=== PATIENT | female | born 1990 | race Caucasian/White ===

== ENCOUNTER 2022-04-01 01:01 | Inpatient (IN) ==
[2022-04-01] MEDS ORDERED: LIDOCAINE 1% LOCAL 20 ML VIAL INFIL PRN (01:51)
[2022-04-01] MEDS ORDERED: PENICILLIN G POTASSIUM 6 MU in DEXTROSE 5% 250 ML IV STA (01:51)
[2022-04-01] MEDS ORDERED: OXYTOCIN 30 UNITS/500 ML BAG IV PRN ×2 (01:51→08:39)
--- NOTE | 2022-04-01 01:56 | History & Physical Report ---
Date of Service April 01, 2022 Assessment & Plan (1) Group B streptococcal infection during : Plan: 31 yo G1 at 39 wga presents in labor VSS Fetus cat 1 Labor - expectant management, plan reviewed GBS+, pcn epidural prn History of Present Illness Chief Complaint: Contractions Primary Care Provider: NO PCP 31 yo G1 at 39 wga presents w/ ctx increasing in frequency and intensity. had gush of fluid and maybe trickle after but not since initial trickle. Some bloody show but no bleeding, +FM PNI: GBS+ Past rn referral Hx: G1 regular cycles denies hx STIs denies hx abnl pap Allergies Allergy/AdvReac Type Severity Reaction Status Date / Time No Known Allergies Allergy Verified 04/01/22 01:29 Home Medications Medication Instructions Recorded Confirmed Type prenat.vits,dotty,fxz-numn-jlbmw 1 tab PO DAILY 09/08/21 04/01/22 History Patient History Medical History Heart murmur History of chicken pox Surgical History S/P dilation of urethra Family History Father Diabetes Sister Thyroid disease Denies family history of Ovarian cancer Breast cancer Colorectal cancer Social History Smoking Status: Never smoker Hx Alcohol Use: No Hx Substance Use: No Preferred Language: Armenian Communication Ability: Effective 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 Beliefs That Will Affect Care: None marital status: Current Living Situation: Spouse Current Living Situation Comment: House with , sister and brother in law current occupational status: employed 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 Other Information That Helps Us Care for You: No Feels Safe at Home: Yes Safety Concerns: Feels Safe At This Time Assistive Devices: None Physical Exam Genitourinary: OB Exam Abdomen: + vertex and + estimated weight (7-8) Manual OB Exam: + cervical dilation (3-4), + cervical effacement 70% and + station -2; no amniotic fluid (neg pooling, ferning) OB Exam Monitor Tracing: + external FHT monitor used, + external uterine monitor used (q3) and + category I (130/mod/+accel/-decel) Results & Data ([facility]) Vital Signs (Past 12 Hours) Vital Signs Temp Pulse Resp BP O2 Del Method 04/01/22 01:30 98.1 F 20 Room Air 04/01/22 01:21 70 127/82 Laboratory Results OB Labs: Blood Type O Negative 09/08/21 Antibody Screen NEGATIVE 01/15/22 Hemoglobin 12.4 g/dl (12.0-16.0) 01/15/22 Hematocrit 35.7 % (34.1-44.9) 01/15/22 Mean Corpuscular Volume 94.3 fL (80-100) 09/08/21 Platelet Count 318 K/uL (130-400) 09/08/21 Rubella IgG Antibody Immune (Immune) 09/08/21 Rapid Plasma Reagin Nonreactive (Nonreactive) 09/08/21 Hepatitis B Surface Antigen. NON-REACTIVE (NON-REACTIVE) 09/08/21 Hepatitis C Antibody (EIA) NON-REACTIVE (NON-REACTIVE) 09/08/21 HIV (1&2) Ag and Ab Confirmation NON-REACTIVE (NON-REACTIVE) 09/08/21 Glucose 1 Hour 50 gm Load 99 mg/dl (70-130) 01/15/22 OB Optional Labs: Chlamydia trachomatis RNA NOT DETECTED (NOT DETECTED) 09/08/21 Neisseria gonorrhoeae RNA NOT DETECTED (NOT DETECTED) 09/08/21 Labs Reviewed: cf/sma-negative--mln GBS+ Coding Level of Care Code None Diagnoses Group B streptococcal infection during O98.819; B95.1
[2022-04-01] MEDS ORDERED: BUPIVACAINE 0.25% 30 ML VIAL ONE (02:10)
[2022-04-01] MEDS ORDERED: fentaNYL citrate 100 MCG/2 ML VIAL ONE (02:10)
[2022-04-01] MEDS ORDERED: ePHEDrine sulfate 50 MG/ML AMP ONE (02:10)
[2022-04-01] MEDS ORDERED: SODIUM CHLORIDE 0.9% INJ 10 ML VIAL ONE (02:10)
[2022-04-01] MEDS ORDERED: LIDOCAINE 2%/EPINEPHRINE 1:200,000 20 ML SDV ONE (02:10)
[2022-04-01] MEDS ORDERED: fentaNYL 2MCG/ML ROPIVACAINE 1.25MG/ML 100 ML BAG EPI ONE (02:11)
[2022-04-01] MEDS: LACTATED RINGER'S 1,000 ML IV PRN ×2 (02:17→03:21)
[2022-04-01 02:37] LABS: Hematocrit (blood only) 36.9 % (34.1-44.9); Hemoglobin 13.5 g/dl (12.0-16.0); Mean Corpuscular Hemoglobin 33.7 pg (25.0-34.0); Mean Corpuscular Hgb Conc 36.6 g/dL (32.0-36.0); Mean Platelet Volume 11.5 fL (9.4-12.3); Platelet Count 301 K/uL (130-400); RDW Coefficient of Variation 11.9 % (11.5-14.5); RDW Standard Deviation 39.8 fL (36.4-46.3); Red Blood Count 4.01 M/uL (3.93-5.22); White Blood Count 13.69 K/ul (4.8-10.8)
[2022-04-01] MEDS ORDERED: diphenhydrAMINE 50 MG/ML VIAL IV PRN (02:51)
[2022-04-01] MEDS ORDERED: NALOXONE HCL 1 MG in SODIUM CHLORIDE 0.9% 1000ML 1,000 ML IV PRN (02:51)
[2022-04-01] MEDS ORDERED: ePHEDrine sulfate 50 MG/ML AMP IV PRN (02:51)
[2022-04-01] MEDS ORDERED: fentaNYL 2MCG/ML ROPIVACAINE 1.25MG/ML 100 ML BAG EPI PRN (02:51)
[2022-04-01] MEDS ORDERED: NALOXONE HCL 0.4 MG/1 ML VIAL/CARP IV PRN (02:51)
[2022-04-01] MEDS ORDERED: ONDANSETRON INJ 2 MG/ML 2 ML VIAL IV PRN (02:51)
[2022-04-01] MEDS ORDERED: NALBUPHINE HCL INJ 10 MG/ML AMP IV PRN (02:51)
--- NOTE | 2022-04-01 02:53 | Anesthesiology Consultation ---
Date of Service April 01, 2022 Assessment & Plan (1) Encounter for pre-operative examination: Chart Review Chart Review: Patient NOT seen in Pre Admission Testing and Acceptable Risk for Labor Epidural Consults Requested none History Height/Weight Height: 5 ft 1 in Weight: 83.461 kg Allergies Allergy/AdvReac Type Severity Reaction Status Date / Time No Known Allergies Allergy Verified 04/01/22 01:29 Medications Home Medications Medication Instructions Recorded Confirmed Last Taken prenat.vits,dotty,rmq-ytue-cwnjx 1 tab PO DAILY 09/08/21 04/01/22 03/31/22 Active Medications Generic Name Dose Route Start Last Admin Trade Name Freq PRN Reason Stop Dose Admin Lactated Ringer's 1,000 mls @ 125 mls/hr 04/01/22 01:51 04/01/22 02:17 Lr IV 04/03/22 01:50 999 mls/hr .Q8H PRN Administration L&D Protocol Protocol Past Medical History Medical History Heart murmur History of chicken pox Exercise / Class Metabolic Activity II 4-5 Yardwork/Stairs/Walk up hill Past Family History Family History Father Diabetes Sister Thyroid disease Denies family history of Ovarian cancer Breast cancer Colorectal cancer Past Surgical History Surgical History S/P dilation of urethra Past Anesthesia History No Hx of Anesthesia Complications and No Family Hx of Anesthesia Complications History of PONV No Hx of PONV and No Hx of Motion Sickness Social History Smoking Status: Never smoker Hx Alcohol Use: No Hx Substance Use: No Physical Exam Vital Signs Last Vital Signs Temp 36.7 C 04/01/22 01:30 Pulse 81 04/01/22 02:53 Resp 20 04/01/22 01:30 BP 164/81 H 04/01/22 02:48 Pulse Ox 100 04/01/22 02:53 O2 Del Method 04/01/22 01:30 Testing Laboratory Results 04/01/22 02:08
[2022-04-01] MEDS ORDERED: PENICILLIN G POTASSIUM 3 MU in DEXTROSE 5% 100 ML IV PRN (04:51)
[2022-04-01] MEDS ORDERED: Flu Vaccine (Fluarix) 0.5mL SYR (Standard Dose) IM ONE (05:45)
[2022-04-01] MEDS ORDERED: NURSING L&D Epidural Breakthrough Pain Update ONE (06:10)
--- NOTE | 2022-04-01 08:27 | Delivery Summary ---
Vaginal Delivery Summary Date of Service April 01, 2022 Vaginal Delivery Summary and 2nd Degree LAC PREOPERATIVE DIAGNOSIS: 1. Single intrauterine at 39 wga 2. Labor 3. GBS+ POSTOPERATIVE DIAGNOSIS: 1. Single intrauterine at 39 wga 2. Labor 3. GBS+ 4. Delivered PROCEDURE: 1. Normal spontaneous vaginal delivery. SURGEON: Radha Joseph MD ANESTHESIA: Epidural. ESTIMATED BLOOD LOSS: 500 mL FLUIDS: Continuous LR. URINE OUTPUT: None. COMPLICATIONS: None. CONDITION: Stable. INDICATIONS: 31 yo G1 at 39 wga presented with contractions increasing in frequency and intensity. She was checked and found to be 3-4cm. Penicillin was started for GBS+ status and an epidural for pain control. She progressed spontaneously to complete and desired to push FINDINGS: A viable male , weight pending with Apgars of 8 and 9 at 1 and 5 minutes respectively. SPECIMEN: Cord blood, placenta OPERATIVE REPORT: The patient progressed to 10 cm, 100% effaced and +2 station, pushed over intact perineum with anesthesia to deliver a viable male , w eight and Apgars as above. Head of delivered in YOBANY position. Loose nuchal cord was noted and reduced. Body and shoulders were delivered without difficulty. was delivered to maternal abdomen and nursing staff. Delayed cord clamping was performed for 60 seconds. Cord was clamped and cut. Cord blood was obtained. Placenta delivered spontaneously intact with 3-vessel cord. IV oxytocin and fundal massage were given for excellent hemostasis. Vagina, cervix, perineum, and placenta were inspected. Bilateral sulcal tears were repaired with 3-0 vicryl in the usual fashion. A second degree was repaired in the usual fashion. Majority of EBL was from tears. Sponge and needle counts correct x2. No sponges were left behind. Mother and stable in immediate period. [facility] [place]ag[place] Delivery Charge Vaginal Delivery Codes: 24618 global code for the antepartum, delivery, and post- Delivery Type Details: and 2nd Degree LAC
[2022-04-01] MEDS ORDERED: HYDROCORTISONE ACETATE 25 MG SUPP PR PRN (08:39)
[2022-04-01] MEDS ORDERED: bisacodyL 10 MG SUPP PR PRN (08:39)
[2022-04-01] MEDS ORDERED: DIPHTHERIA/TETANUS/PERTUSSIS 0.5 ML SYR/VIAL IM ONE (08:39)
--- NOTE | 2022-04-01 08:51 | Anesthesia Procedure Note ---
Date of Service April 01, 2022 Anesthesia Post Epidural Note Vital Signs Vital Signs: Temp Pulse Resp BP Pulse Ox O2 Del Method 98.2 F 80 18 131/63 88 L 04/01/22 08:15 04/01/22 08:47 04/01/22 08:30 04/01/22 08:47 04/01/22 07:34 04/01/22 01:30 Pain Intensity Right Back: Pain Intensity: 4 Notes Mental Status: alert / awake / arousable and participated in evaluation Nausea / Vomiting: adequately controlled Pain: adequately controlled Airway Patency, RR, SpO2: stable & adequate BP & HR: stable & adequate Hydration State: stable & adequate Neuraxial Anesthesia: was administered and sensory block is resolving Anesthetic Complications: no major complications apparent and Pt Satisfied with anesthetic care Epidural: Removed without complications and With tip intact
[2022-04-01] MEDS: BENZOCAINE 20% AER SPR 82.5 GM CAN EXT PRN ×2 (09:36→12:52)
[2022-04-01] MEDS: IBUPROFEN 600 MG TAB PO PRN ×3 (09:36→20:15)
[2022-04-01] MEDS: ACETAMINOPHEN 325 MG TAB PO PRN ×2 (12:52→20:15)
[2022-04-01] MEDS: DOCUSATE SODIUM 100 MG CAP PO SCH (20:14)
[2022-04-02] MEDS: ACETAMINOPHEN 325 MG TAB PO PRN ×2 (04:42→09:14)
[2022-04-02] MEDS: IBUPROFEN 600 MG TAB PO PRN ×2 (04:43→09:14)
--- NOTE | 2022-04-02 06:23 | Obstetrical Progress Note ---
Date of Service April 02, 2022 Assessment & Plan (1) Supervision of normal first : (2) Group B streptococcal infection during : (3) Need for rhogam due to Rh negative mother: Plan s/p PPD#1: Vitals reviewed and WNL, Tmax at 37.1 O-, GBS positive, rubella immune (received penicillin) Hemoglobin 13.5 (/) Encourage ambulation Continue regular diet, treat pain as needed Patient would like to d/c today if possible, will place order Admission and Anticipated Discharge Date Admission Date: April 01, 2022 Supervising Physician Co-Signing Physician Notes Resident Physician Supervision Note: I was present with Dr. Em during the history and exam. I discussed the case with the resident and agree with the findings and plan as documented in the note. Any exceptions or clarifications are listed here: PPD#1 doing well, desires DC home. Instructions reviewed, followup 6w pp. Documented By: Sissy Royal, Review of Systems Constitutional: no fever, no chills and no sweats Respiratory: no cough, no dyspnea and no wheezing Cardiovascular: no chest pain, no palpitations and no calf pain Genitourinary: no dysuria Neurologic: no headache(s) Physical Exam Physical Exam: Janiya is a 31 y/o female who is PPD #1 following delivery at 39 0/7 weeks. Her was complicated by GBS+ status, received penicillin. She reports feeling well overall this morning. Pain well managed on analgesics. Voiding without issue. Tolerating meals overnight and able to ambulate some. Endoreses passing gas. Has some persistent lochia with some improvement this morning. Currently breast feeding. Is interested in going home today. Constitutional: WD/WN, vitals as above no acute distress Respiratory: no respiratory distress Auscultation: lungs clear to auscultation bilaterally; no rales, no rhonchi and no wheezes Cardiovascular: RRR, no murmur, no edema Extremities: no calf tenderness and no edema Negative Teto's sign bilaterally. Gastrointestinal (Abdomen): Inspection/Auscultation: normal bowel sounds Genitourinary: Uterine fundus firm, palpable below the umbilicus. Results & Data ([facility]) Vital Signs (Past 12 Hours) Vital Signs Temp Pulse Resp BP 04/02/22 04:30 37.0 C 75 18 113/66 04/01/22 23:53 37.0 C 69 18 110/70 04/01/22 20:11 36.8 C 65 18 113/72 Resident Activity Tracking Resident Involvement: Resident Care Provided Care Provided: OB Delivery
[2022-04-02 07:04] LABS: Hematocrit (blood only) 30.9 % (34.1-44.9); Hemoglobin 10.8 g/dl (12.0-16.0); Mean Corpuscular Hemoglobin 33.3 pg (25.0-34.0); Mean Corpuscular Volume 95.4 fL (80.0-100.0); Mean Platelet Volume 11.5 fL (9.4-12.3); Platelet Count 218 K/uL (130-400); RDW Standard Deviation 41.7 fL (36.4-46.3); Red Blood Count 3.24 M/uL (3.93-5.22)
[2022-04-02] MEDS: DOCUSATE SODIUM 100 MG CAP PO SCH (07:42)
[2022-04-02] MEDS ORDERED: PRENATAL VITAMIN 1 TAB PO SCH (08:00)
[2022-04-02] MEDS ORDERED: FERROUS SULFATE 325 MG TAB PO SCH (08:00)
[2022-04-02] MEDS ORDERED: bisacodyL 5 MG TABEC PO SCH (20:00)
== END 2022-04-02 14:07 | disposition home or self-care (01) | DRG 807 ==
LOC: OPB 01:01 → 4S1 01:02 → 4E2 11:06

== ENCOUNTER 2023-07-26 04:15 | Inpatient (IN) ==
[2023-07-26] MEDS ORDERED: LIDOCAINE 1% LOCAL 20 ML VIAL INFIL PRN (04:33)
[2023-07-26] MEDS ORDERED: PENICILLIN GK 6 MU in DEXTROSE 5% 250 ML IV STA (04:33)
[2023-07-26] MEDS ORDERED: LACTATED RINGER'S 1,000 ML IV PRN (04:33)
--- NOTE | 2023-07-26 04:39 | History & Physical Report ---
Date of Service July 26, 2023 Assessment & Plan (1) Encounter for supervision of normal in multigravida: (2) Group B streptococcal infection during : Plan 32 yo at 39 4/7 wga presents in active labor VSS Fetus cat 1 Labor - 9cm, will attempt to get epidural GBS+, pcn ordered History of Present Illness Chief Complaint: ctx Primary Care Provider: NO PCP 32 yo at 39 4/7 wga presents w/ ctx. Pt called after ctx began for about an hour and were q2-5min so rec for eval. Ctx got much worse and on arrival 9cm. 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 Allergies Allergy/AdvReac Type Severity Reaction Status Date / Time No Known Allergies Allergy Verified 07/22/23 13:27 Home Medications Medication Instructions Recorded Confirmed Type prenat.vits,dotty,vxv-dcor-sujdd 1 tab PO DAILY 09/08/21 07/22/23 History Patient History Medical History (Updated 12/09/22 @ 09:02 by Paris Momin RN) Heart murmur Supervision of normal first History of chicken pox Surgical History S/P dilation of urethra Family History Father Diabetes Sister Thyroid disease Denies family history of Ovarian cancer Breast cancer Colorectal cancer Social History (Updated 12/09/22 @ 08:55 by Paris Momin RN) Smoking Status: Never smoker Hx Alcohol Use: No Hx Substance Use: No Preferred Language: Armenian Communication Ability: Effective 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 Beliefs That Will Affect Care: None marital status: marital status details: Tristen - [phone] Current Living Situation: Spouse Current Living Situation Comment: House with ,son, 1 dog current occupational status: employed 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
[2023-07-26] MEDS: OXYTOCIN 30 UNITS/NSS 30 UNITS/500 ML BAG IV PRN (04:54)
--- NOTE | 2023-07-26 05:23 | Delivery Summary ---
Vaginal Delivery Summary Date of Service July 26, 2023 Vaginal Delivery Summary and 1st Degree LAC PREOPERATIVE DIAGNOSIS: 1. Single intrauterine at 39 4/7 wga 2. Precipitous Labor 3. GBS+ 4. Rh neg POSTOPERATIVE DIAGNOSIS: 1. Single intrauterine at 39 4/7 wga 2. Precipitous Labor 3. GBS+ 4. Rh neg 5. Delivered PROCEDURE: 1. Normal spontaneous vaginal delivery. SURGEON: Radha Joseph MD ANESTHESIA: Local ESTIMATED BLOOD LOSS: 300 mL FLUIDS: Continuous LR. URINE OUTPUT: None. COMPLICATIONS: None. CONDITION: Stable. INDICATIONS: 32 yo at 39 4/7 wga called w/ ctx that began around 230-3am. Contractions rapidly progressed and presented for evaluation and found to be 9cm. She progressed to complete and desired to push. FINDINGS: A viable female , weight pending with Apgars of 8 and 9 at 1 and 5 minutes respectively. SPECIMEN: Cord blood OPERATIVE REPORT: The patient progressed to 10 cm, 100% effaced and +2 station, pushed over intact perineum without anesthesia to deliver a viable female , weight and Apgars as above. Head of delivered in AMELIE position. No nuchal cord was present. Body and shoulders were delivered without difficulty. was delivered to maternal abdomen and nursing staff. Delayed cord clamping was performed for 60 seconds. Cord was clamped and cut. Cord blood was obtained. Placenta delivered spontaneously intact with 3-vessel cord. IV oxytocin and fundal massage were given for excellent hemostasis. Vagina, cervix, perineum, and placenta were inspected. A first degree laceration was repaired using 3-0 vicryl. A hemostatic left labial abrasion and vaginal abrasion were noted, did not need to be repaired. There was excellent hemostasis. Sponge and needle counts correct x2. No sponges were left behind. Mother and stable in immediate period. [facility] Vaginal Delivery Charge Vaginal Delivery Codes: 00535 global code for the antepartum, delivery, and post- Delivery Type Details: and 1st Degree LAC
[2023-07-26] MEDS ORDERED: HYDROCORTISONE ACETATE 25 MG SUPP PR PRN (05:52)
[2023-07-26] MEDS ORDERED: bisacodyL 10 MG SUPP PR PRN (05:52)
[2023-07-26] MEDS ORDERED: OXYTOCIN 30 UNITS/NSS 30 UNITS/500 ML BAG IV PRN (05:52)
[2023-07-26] MEDS ORDERED: ACETAMINOPHEN 325 MG TAB PO PRN (05:52)
[2023-07-26 06:05] LABS: Hematocrit (blood only) 33.9 % (37.0-47.0); Hemoglobin 11.7 g/dl (12.0-16.0); Mean Corpuscular Hemoglobin 32.6 pg (25.0-34.0); Mean Corpuscular Hgb Conc 34.5 g/dL (32.0-36.0); Mean Corpuscular Volume 94.4 fL (80.0-100.0); Mean Platelet Volume 10.2 fL (9.4-12.4); Platelet Count 311 K/uL (130-400); RDW Coefficient of Variation 12.8 % (11.5-14.5); RDW Standard Deviation 44.1 fL (36.4-46.3); Red Blood Count 3.59 M/uL (4.20-5.40); White Blood Count 14.24 K/ul (4.8-10.8)
[2023-07-26] MEDS: BENZOCAINE 20% SPRY 85 APPLN/85 GM CAN EXT PRN (06:23)
[2023-07-26] MEDS: IBUPROFEN 600 MG TAB PO PRN (06:24)
[2023-07-26] MEDS ORDERED: PENICILLIN GK 3 MU in DEXTROSE 5% 100 ML IV PRN (07:33)
[2023-07-26] MEDS: DIPHTHER/TETAN/PERTUS Vaccine (Tdap, Adol/Adult) 0.5mL IM ONE (08:07)
[2023-07-26] MEDS: PRENATAL VITAMIN 1 TAB PO SCH (10:27)
[2023-07-26] MEDS: DOCUSATE SODIUM 100 MG CAP PO SCH (10:27)
[2023-07-26] MEDS: FERROUS SULFATE 325 MG TAB PO SCH (10:28)
--- NOTE | 2023-07-27 07:19 | Obstetrical Progress Note ---
Date of Service July 27, 2023 Assessment & Plan (1) care and examination: Plan Doing well today encourage ambulation dc today Admission and Anticipated Discharge Date Admission Date: July 26, 2023 Supervising Physician Co-Signing Physician Notes Resident Physician Supervision Note: I interviewed and examined the patient. Discussed with Dr. Martin and agree with findings and plan as documented in the note. Any exceptions or clarifications are listed here: PPD#1 doing well. Wants to go home today - reviewed instructions. Documented By: Sissy Royal, Subjective 32 yo post day 1 s/p Ambulation: ambulating normally Voiding: no voiding problems Passing Gas:: Yes Diet Tolerance:: regular diet Lochia:: Small Feeding Type:: breast feeding Current Pain Level: minimal Resting comfortably this AM in NAD. Denies HOWARD, CP, SOB, N/V/D, LE pain/swelling. Desires dc today Review of Systems Review of Systems: reviewed, per HPI Physical Exam Physical Exam: General: patient resting comfortably, NAD, non-toxic in appearance, answers questions appropriately. Skin: warm, dry, intact HEENT: NC/AT, anicteric sclera, conjunctiva without injection, moist mucus membranes. Heart: +S1/S2, regular, no m/r/g Lungs: equal air entry bilaterally, no rales/rhonchi/wheezes Abd: +BS, soft, NT/ND, uterine fundus firm at umbilicus Ext: warm, no clubbing/cyanosis or edema, Teto's neg. Neuro: nonfocal, speech intact, no facial droop, moving all extremities on command. Results & Data Vital Signs (Past 12 Hours) Vital Signs Temp Pulse Resp BP Pulse Ox O2 Del Method 07/27/23 03:00 36.8 C 65 18 117/70 97 Room Air 07/26/23 23:00 36.6 C 65 18 124/69 99 Room Air 07/26/23 19:20 36.5 C 68 18 123/78 98 Room Air Resident Activity Tracking Resident Involvement: Resident Care Provided Care Provided: Adult Hospital Medicine
[2023-07-27] MEDS ORDERED: bisacodyL 5 MG TABEC PO SCH (20:00)
== END 2023-07-27 13:55 | disposition home or self-care (01) | DRG 807 ==
LOC: OPB 04:15 → 4S1 04:17 → 4E2 07:50